=== PATIENT | male | born 1950 | race Caucasian/White ===

== ENCOUNTER 2022-01-12 00:03 | Day surgery (SDC) | payer OTHER, SELFPAY ==
[2021-12-27 08:29] VITALS: BMI 34.0
[2022-01-12 08:31] VITALS: BP 139/71; PULSE 65; RESP 17; TEMP 36.6; O2SAT 99; BMI 32.6
--- NOTE | 2022-01-12 08:53 | PM.HPGS ---
History of Present Illness History of Present Illness Consent: Risks, benefits, and alternatives have been discussed and questions answered. Patient agrees to proceed with procedure. Chief complaint: hx colon polyps Narrative: Brenton Reynoso is a 71 year old male Presents for screening colonoscopy. Patient's last colonoscopy 2049 or older. He has a history of colon polyps prior to that. Patient's current weight appetite bowel movements are normal. Patient presents today for neoplasia screening colonoscopy. Review of Systems Review of Systems: Review of systems noncontributory. [facility] Surgical History Surgical History (Updated 12/06/21 @ 09:51 by Radha Belle MA) Hx of appendectomy Family History Family History Father Cancer of small intestine Mother Heart disease Social History Social History (Updated 12/27/21 @ 08:42 by Zara Gaming RN) Years smoked: 12 Smoking status: Former smoker Tobacco type: cigarettes Second hand tobacco smoke exposure: No Smoking end date: 04/09/79 Alcohol intake: never Alcohol use details: Rarely Substance use: current Substance use type: marijuana Other substance usage details: smokes marijuana every evening Living arrangements: with family Gender identity (if verbalized by the patient): Male Sexual Orientation (if Verbalized by the Patient): Straight or Heterosexual Spiritual care concerns: No Meds Home Medications and Allergies Home Medications Medication Instructions Recorded Confirmed Type allopurinol 300 mg tablet 300 mg PO QHS 12/06/21 01/12/22 History ezetimibe 10 mg tablet 10 mg PO DAILY 12/06/21 01/12/22 History Allergies Allergy/AdvReac Type Severity Reaction Status Date / Time No Known Allergies Allergy Verified 01/12/22 08:30 Vital Signs Vital Signs - 24 hr 01/12/22 08:31 Temperature 98 F Pulse Rate 65 Respiratory Rate 17 Blood Pressure 139/71 Pulse Oximetry 99 Oxygen Delivery Room Air Exam Narrative: Physical exam reveals patient to be alert. Vital signs stable. HEENT exam is unremarkable. Patient is anicteric. Lungs are clear to auscultation and percussion. Heart is without murmur or extra sounds. Abdomen bowel sounds are present soft nontender with no organomegaly. Digital external rectal exam is normal. Assessment and Plan Assessment and plan (1) History of colon polyps: Code(s): Z86.010 - Personal history of colonic polyps Status: Acute Assessment and Plan: Patient has a history of colon polyps many years ago. Plan for surveillance colonoscopy now. Further recommendations will be given after endoscopy.
[2022-01-12] MEDS: LACTATED RINGERS 1,000 ML 150 ML IV CONT (08:54)
--- NOTE | 2022-01-12 09:15 | P.PNAN_ITS ---
Anes - Initial Pre Proc Eval Procedure: Operation Date: 01/12/22 09:30 Proposed Procedures p Screening Colonoscopy - Demetrius Herrera MD Date/Time: 01/12/22 09:15 Surgeon: Demetrius Herrera MD Pre Op Diagnosis: hx colon polyps Patient Data Age: 71 Gender: M Height: 1.68 m Weight: 91.7 kg Last Vital Signs Temp 98 F 01/12/22 08:31 Pulse 65 01/12/22 08:31 Resp 17 01/12/22 08:31 BP 139/71 01/12/22 08:31 Pulse Ox 99 01/12/22 08:31 O2 Del Method Room Air 01/12/22 08:31 Allergies Allergy/AdvReac Type Severity Reaction Status Date / Time No Known Allergies Allergy Verified 01/12/22 08:30 Home Medications Medication Instructions Recorded Confirmed Type allopurinol 300 mg tablet 300 mg PO QHS 12/06/21 01/12/22 History ezetimibe 10 mg tablet 10 mg PO DAILY 12/06/21 01/12/22 History Patient hx anesthesia problems: none Family hx anesthesia problems: none Results Review: All pre-operative results and documents have been reviewed as part of the pre- operative evaluation. [facility] Surgical History Surgical History (Updated 12/06/21 @ 09:51 by Radha Belle MA) Hx of appendectomy Family History Family History Father Cancer of small intestine Mother Heart disease Social History Social History (Updated 12/27/21 @ 08:42 by Zara Gaming RN) Years smoked: 12 Smoking status: Former smoker Tobacco type: cigarettes Second hand tobacco smoke exposure: No Smoking end date: 04/09/79 Alcohol intake: never Alcohol use details: Rarely Substance use: current Substance use type: marijuana Other substance usage details: smokes marijuana every evening Living arrangements: with family Gender identity (if verbalized by the patient): Male Sexual Orientation (if Verbalized by the Patient): Straight or Heterosexual Spiritual care concerns: No Anes - Eval Final PreProcedure Day of Procedure 01/12/22 09:15 Patient weight: obese Heart: regular rate and rhythm Lungs: clear to auscultation Airway: Mallampati scale class II Neurological: alert and oriented Last oral intake: >/= 8 hours ASA classification: II Emergent: no Anesthetic plan: proceed Anesthesia type and monitoring: general GIVS and standard monitoring Results Review: All pre-operative results and documents have been reviewed as part of the pre- operative evaluation. Informed Consent: The patient's anesthetic plan and its attendant risks and benefits were discussed with the patient/family/POA. Questions were solicited and answers provided to the satisfaction of the patient/family/POA.
[2022-01-12 09:48] VITALS: BP 106/66; PULSE 72; RESP 17; O2SAT 100
[2022-01-12 09:58] VITALS: BP 143/76; PULSE 61; RESP 18; O2SAT 100
[2022-01-12 10:08] VITALS: BP 137/72; PULSE 62; RESP 17; O2SAT 100
== END 2022-01-12 10:13 | disposition home or self-care (01) ==
PROVIDERS: PCP Family Medicine Adolescent Medicine; Visit Provider Internal Medicine Gastroenterology
PROC: 0DJD8ZZ Inspection of Lower Intestinal Tract, Via Natural or Artificial Opening Endoscopic (ICD-10-PCS; CPT 45378; principal; 2022-01-12 09:30)
DX: Z12.11 Encounter for screening for malignant neoplasm of colon (principal); D12.5 Benign neoplasm of sigmoid colon; K64.8 Other hemorrhoids; Z87.891 Personal history of nicotine dependence; F12.90 Cannabis use, unspecified, uncomplicated; E66.9 Obesity, unspecified; Z68.32 Body mass index [BMI] 32.0-32.9, adult
CPT/HCPCS: 45385; 88305; J2704; J7120

== ENCOUNTER → 2022-07-06 09:01 | Outpatient (CLI) | payer OTHER, SELFPAY ==
--- NOTE | ~2022-07-06 | CT_ITS ---
Non-contrast CT scan of the Abdomen and Pelvis Clinical indication: Abdominal pain, umbilical hernia Technique: 2.5 mm axial scans were obtained through the abdomen and pelvis without intravenous or or al contrast. Dose reduction technique was used on this scan by utilizing automated exposure control a nd iterative reconstruction technique. The dose-length product (DLP) was 861.24 mGy-cm. Findings: Images through the lung bases reveal 1 cm pleural-based round pulmonary nodule at the left lower lobe (axial image 17). Punctate nonobstructing left renal stones are noted. No right renal stone. No hydronephrosis on eithe r side. Liver is nodular and small, compatible cirrhosis. The spleen, pancreas, gallbladder, and adrenals dorys ear normal. There is no aortic aneurysm. There is no evidence of bowel obstruction. Moderate to large fat-containing umbilical hernia noted. Images through the pelvis were performed. There is no evidence of ascites or lymphadenopathy. Urinary bladder unremarkable. Prostate gland and seminal vesicles are unremarkable Impression: Moderate to large fat-containing inguinal hernia. Cirrhotic liver. Punctate nonobstructing left renal stones. 1 cm round left lower lobe pulmonary nodule. 3 month follow-up CT advised to reassess. Reviewed, dictated and finalized at [facility]. Impression: Moderate to large fat-containing inguinal hernia. Cirrhotic liver. Punctate nonobstructing left renal stones. 1 cm round left lower lobe pulmonary nodule. 3 month follow-up CT advised to re assess.
== END ==
PROVIDERS: PCP Family Medicine Adolescent Medicine; Visit Provider Family Medicine Adolescent Medicine
DX: R10.31 Right lower quadrant pain (principal); R10.12 Left upper quadrant pain; K42.9 Umbilical hernia without obstruction or gangrene; K40.90 Unilateral inguinal hernia, without obstruction or gangrene, not specified as recurrent; N20.0 Calculus of kidney; R91.1 Solitary pulmonary nodule; K74.60 Unspecified cirrhosis of liver
CPT/HCPCS: 74176